=== PATIENT | male | born 1945 | race Caucasian/White ===

== ENCOUNTER → 2016-06-18 | Outpatient (CLI) | payer MEDICARE, OTHER | LOC: EMI 15:14 | DX: M54.2 Cervicalgia (principal); M96.1 Postlaminectomy syndrome, not elsewhere classified; M99.71 Connective tissue and disc stenosis of intervertebral foramina of cervical region; M99.73 Connective tissue and disc stenosis of intervertebral foramina of lumbar region | CPT/HCPCS: 72141; 72148 ==

== ENCOUNTER 2020-07-01 12:53 | Inpatient (IN) | payer MEDICARE, OTHER ==
[~2020-07-01] VITALS: Ht 180.3 cm; Wt 116.6 kg
[~2020-07-01 12:53] MED LIST: FLEXERIL 10 MG10 MG PO; MEDROL4 MG PO; MEDROL8 MG PO; ROBAXIN500 MG PO
[2020-07-01 15:42] LABS: HEMOGLOBIN 14.4 gm/dl (14.0-17.5); RED BLOOD COUNT 4.25 M/UL (4.20-5.50); WHITE BLOOD COUNT 12.7 K/UL (4.5-11.0)
[2020-07-01 16:10] LABS: BUN/CREATININE RATIO 18 (0-10)
[2020-07-01] MEDS ORDERED: CLOPIDOGREL75 MG PO (21:39)
[2020-07-01] MEDS ORDERED: METOPROLOL SUC100 MG PO (21:41)
[2020-07-01] MEDS ORDERED: ISOSORBIDE MONO30 MG PO (21:43)
[2020-07-01] MEDS ORDERED: FLOMAX 0.4 MG0.4 MG PO (21:43)
[2020-07-01] MEDS ORDERED: LOSARTAN POTAS100 MG PO (21:44)
[2020-07-02 03:44] LABS: HEMOGLOBIN 13.7 gm/dl (14.0-17.5); RED BLOOD COUNT 4.07 M/UL (4.20-5.50); WHITE BLOOD COUNT 8.1 K/UL (4.5-11.0)
[2020-07-02 03:47] LABS: BUN/CREATININE RATIO 20 (0-10)
[2020-07-02] MEDS ORDERED: COLACE100 MG PO (08:40)
[2020-07-02] MEDS ORDERED: VITAMIN C 500500 MG PO (08:40)
[2020-07-02] MEDS ORDERED: VITAMIN D325 MC6 PO (08:40)
[2020-07-02] MEDS ORDERED: CYCLOBENZAPRINE10 MG PO (08:42)
[2020-07-02] MEDS ORDERED: KENALOG CREAM 015 GM TOP (08:43)
--- NOTE | 2020-07-02 18:14 | NUR ---
1400 Called [employer] to see what precautions needed to be taken since patient has a pain stimulator. After checking they said box needed to be set to MRI Mode.
[2020-07-02] MEDS ORDERED: RESTORIL 15 MG15 MG PO (21:41)
[2020-07-02] MEDS ORDERED: MIRTAZAPINE15 MG PO (21:42)
[2020-07-02] MEDS ORDERED: PROZAC 20 MG CA20 MG PO (21:42)
[2020-07-02] MEDS ORDERED: XARELTO20 MG PO (21:43)
[2020-07-02] MEDS ORDERED: ZOCOR 40 MG TAB40 MG PO (21:43)
[2020-07-02] MEDS ORDERED: OMEPRAZOLE20 MG PO (21:44)
[2020-07-02] MEDS ORDERED: WELLBUTRIN XL150 MG PO (21:44)
--- NOTE | 2020-07-03 17:20 | NUR ---
RADIOLOGY NOTIFIED ABOUT PATIENT'S IMPLANTED STIMULATOR. PATIENT STATED HE HAD THE EQUIPMENT NECESSARY TO PUT STIMULATOR IN MRI MODE IF NECESSARY, ELEONORA FROM [facility] MADE AWARE OF THIS EARLIER TODAY.
[2020-07-04 03:54] LABS: BUN/CREATININE RATIO 13 (0-10)
[2020-07-04] MEDS ORDERED: METOPROLOL SUCC25 MG PO (15:25)
[2020-07-04] MEDS ORDERED: COZAAR 25MG TAB25 MG PO (15:25)
== END 2020-07-04 19:58 | disposition home health service (06) | DRG 92 ==
LOC: ER1 12:53 → CDU 18:10 → M/S 18:10
PROVIDERS: Emergency Medicine; Internal Medicine Infectious Disease; ADMIT Internal Medicine
DX: R47.81 Slurred speech (principal); N17.9 Acute kidney failure, unspecified; I12.9 Hypertensive chronic kidney disease with stage 1 through stage 4 chronic kidney disease, or unspecified chronic kidney disease; I95.2 Hypotension due to drugs; Z20.822 Contact with and (suspected) exposure to COVID-19; I25.10 Atherosclerotic heart disease of native coronary artery without angina pectoris; N18.30 Chronic kidney disease, stage 3 unspecified; R53.81 Other malaise; Z96.651 Presence of right artificial knee joint; E86.0 Dehydration; T50.995A Adverse effect of other drugs, medicaments and biological substances, initial encounter; E66.01 Morbid (severe) obesity due to excess calories; Z86.718 Personal history of other venous thrombosis and embolism; Z79.01 Long term (current) use of anticoagulants; Z95.1 Presence of aortocoronary bypass graft; Z82.49 Family history of ischemic heart disease and other diseases of the circulatory system; Z68.35 Body mass index [BMI] 35.0-35.9, adult
CPT/HCPCS: 0240U; 36415; 70450; 70496; 70498; 70551; 71045; 72125; 72131; 80048; 80053; 82550; 82553; 82607; 82746; 83605; 83735; 83874; 83880; 84439; 84443; 84484; 85025; 85610; 85730; 92610; 93005; 97110-GP-CQ; 97116-GP-CQ; 97162; 97166; 97535; 99285; G0480; J1644; J7040; Q9965

== ENCOUNTER → 2020-08-15 | Outpatient (CLI) | payer MEDICARE, OTHER ==
[~2020-08-15] MED LIST changes: +CLOPIDOGREL75 MG PO; +COLACE100 MG PO; +COZAAR 25MG TAB25 MG PO; +CYCLOBENZAPRINE10 MG PO; +FLOMAX 0.4 MG0.4 MG PO; +ISOSORBIDE MONO30 MG PO; +KENALOG CREAM 015 GM TOP; +LOSARTAN POTAS100 MG PO; +METOPROLOL SUC100 MG PO; +METOPROLOL SUCC25 MG PO; +MIRTAZAPINE15 MG PO; +OMEPRAZOLE20 MG PO; +PROZAC 20 MG CA20 MG PO; +RESTORIL 15 MG15 MG PO; +VITAMIN C 500500 MG PO; +VITAMIN D325 MC6 PO; +WELLBUTRIN XL150 MG PO; +XARELTO20 MG PO; +ZOCOR 40 MG TAB40 MG PO
== END ==
LOC: KOH-I 11:58
DX: R10.9 Unspecified abdominal pain (principal); J90 Pleural effusion, not elsewhere classified
CPT/HCPCS: 74176

== ENCOUNTER → 2020-08-29 | Outpatient (CLI) | payer MEDICARE, OTHER ==
[2020-08-29 15:45] LABS: HEMOGLOBIN 14.6 gm/dl (14.0-17.5); RED BLOOD COUNT 4.25 M/UL (4.20-5.50); WHITE BLOOD COUNT 7.3 K/UL (4.5-11.0)
[2020-08-29 16:01] LABS: BUN/CREATININE RATIO 11 (0-10)
== END ==
LOC: LAB 12:54
DX: I65.21 Occlusion and stenosis of right carotid artery (principal); E11.9 Type 2 diabetes mellitus without complications
CPT/HCPCS: 80048; 83036; 85025; 85610; 85730

== ENCOUNTER → 2020-09-02 | Outpatient (CLI) | payer MEDICARE, OTHER | LOC: ECHO 12:30 → CT 14:00 | DX: J90 Pleural effusion, not elsewhere classified (principal); R91.8 Other nonspecific abnormal finding of lung field | CPT/HCPCS: ECHO; 71250; 93306 ==

== ENCOUNTER → 2021-02-18 | Outpatient (CLI) | payer MEDICARE, OTHER | LOC: KOH-I 11:45 | DX: R06.02 Shortness of breath (principal); J20.9 Acute bronchitis, unspecified; Z20.822 Contact with and (suspected) exposure to COVID-19; R91.8 Other nonspecific abnormal finding of lung field | CPT/HCPCS: 71046 ==

== ENCOUNTER → 2021-04-11 | Outpatient (CLI) | payer MEDICARE, OTHER | LOC: KOH-I 15:06 | DX: M54.50 Low back pain, unspecified (principal); M47.26 Other spondylosis with radiculopathy, lumbar region; M47.817 Spondylosis without myelopathy or radiculopathy, lumbosacral region; M51.16 Intervertebral disc disorders with radiculopathy, lumbar region; Z98.890 Other specified postprocedural states; M48.061 Spinal stenosis, lumbar region without neurogenic claudication; M48.07 Spinal stenosis, lumbosacral region | CPT/HCPCS: 72131 ==

== ENCOUNTER 2021-08-10 12:07 | Emergency (ER) | payer MEDICARE, OTHER ==
[~2021-08-10] VITALS: Ht 180.3 cm; Wt 117.9 kg
[2021-08-10 13:33] LABS: RED BLOOD COUNT 3.48 M/UL (4.20-5.50); WHITE BLOOD COUNT 10.6 K/UL (4.5-11.0)
[2021-08-10 13:59] LABS: BUN/CREATININE RATIO 21 (0-10)
[2021-08-10 16:21] LABS: BORDETELLA PARAPERTUSSIS Not Detected (Not Detectd); BORDETELLA PERTUSSIS Not Detected (Not Detectd); CHLAMYDIA PNEUMONIAE Not Detected (Not Detectd); CORONAVIRUS HKU1 Not Detected (Not Detectd); CORONAVIRUS NL63 Not Detected (Not Detectd); CORONAVIRUS OC43 Not Detected (Not Detectd); CORONOAVIRUS 229E Not Detected (Not Detectd); HUMAN METAPNEUMOVIRUS Not Detected (Not Detectd); HUMAN RHINOVIRUS/ENTEROVIRUS Not Detected (Not Detectd); INFLUENZA A Not Detected (Not Detectd); INFLUENZA B Not Detected (Not Detectd); MYCOPLASMA PNEUMONIAE Not Detected (Not Detectd); PARAINFLUENZA VIRUS 1 Not Detected (Not Detectd); PARAINFLUENZA VIRUS 2 Not Detected (Not Detectd); PARAINFLUENZA VIRUS 3 Not Detected (Not Detectd); PARAINFLUENZA VIRUS 4 Not Detected (Not Detectd); RESPIRATORY SYNCYTIAL VIRUS Not Detected (Not Detectd)
[2021-08-10 17:15] LABS: SARS-CoV-2 DETECTED (Not Detectd)
[2021-08-10] MEDS ORDERED: BENZONATATE100 MG PO (17:35)
== END 2021-08-10 19:02 | disposition home or self-care (01) ==
LOC: ER1 12:07
PROVIDERS: Nurse Practitioner
DX: U07.1 COVID-19 (principal); I10 Essential (primary) hypertension
CPT/HCPCS: 36600; 71045; 80053; 81001; 82550; 82553; 82803; 83605; 83880; 84484; 85025; 87040; 87633; 93005; 94664; 96374; 99285; J1100; M0247

== ENCOUNTER → 2021-10-16 | Outpatient (CLI) | payer MEDICARE, OTHER ==
[~2021-10-16] MED LIST changes: +BENZONATATE100 MG PO
== END ==
LOC: CT 14:00
DX: I65.21 Occlusion and stenosis of right carotid artery (principal)
CPT/HCPCS: 70496; 70498; Q9967

== ENCOUNTER → 2021-11-07 | Outpatient (CLI) | payer MEDICARE, OTHER | LOC: KOH-I 08:17 | DX: N28.1 Cyst of kidney, acquired (principal); I65.21 Occlusion and stenosis of right carotid artery; K76.0 Fatty (change of) liver, not elsewhere classified | CPT/HCPCS: 76700 ==